=== PATIENT | female | born 1935 | race Caucasian/White ===

== ENCOUNTER 2016-06-09 08:20 | Inpatient (IN) | payer MEDICARE, BC ==
[~2016-06-09 08:20] MED LIST: Bisacodyl 5 MG Tab PO PRN; Lactated Ringers 1,000 ML IV SCH; Lidocaine 1%/Sod Bicarbonate in NS 8.4% 1 ML Syringe IV PRN; Morphine 2 MG/ML Syringe IVPUSH PRN; Sodium Chloride 0.9% 10 ML Syringe FLUSH PRN
--- NOTE | 2016-06-09 09:09 | PCM.PREANE ---
Preanesthetic Assessment - Anesthesia/Transfusion/Family Hx Anesthesia History: Prior Anesthesia Without Reaction Transfusion History: Prior Transfusion Without Reaction - Review of Systems General: No Symptoms Pulmonary: No Symptoms Cardiovascular: No Symptoms Gastrointestinal: No symptoms Neurological: No Symptoms Other: Reports: Easy Bruising - Physical Assessment NPO Status Date: 06/08/16 NPO Status Time: 18:00 Pulse: 74 O2 Sat by Pulse Oximetry: 97 Respiratory Rate: 16 Blood Pressure: 159/63 Temperature: 97.3 F Height: 5 ft 6 in Weight: 66.224 kg ASA Class: 2 Mental Status: Alert & Oriented x3 Airway Class: Mallampati = 1 Dentition: Reports: Normal Dentition, Partial (left out), Missing Tooth/Teeth Thyro-Mental Finger Breadths: 3 Mouth Opening Finger Breadths: 3 ROM/Head Extension: Full Lungs: Clear to auscultation, Normal respiratory effort Cardiovascular: Regular Rate, Regular Rhythm, No Murmurs - Lab Values: 05/26/16 labs reviewed lytes wnl BUN 21 Cr 0.9 - Imaging/EKG Impressions: ekg 05/26/16 SR rate 68 Chest x ray-05/26/16 Unremarkable chest - Allergies Allergies/Adverse Reactions: Allergies Allergy/AdvReac Type Severity Reaction Status Date / Time No Known Allergies Allergy Verified 06/06/16 15:10 - Blood Blood Available: No - Acknowledgements Anesthesia Type Planned: General Anesthesia (has metal in back and sore back) Pt an Appropriate Candidate for the Planned Anesthesia: Yes Alternatives and Risks of Anesthesia Discussed w Pt/Guardian: Yes Pt/Guardian Understands and Agrees with Anesthesia Plan: Yes PreAnesthesia Questionnaire HEENT History: Reports: Other (see below) Other HEENT History: Left ear growth, glasses, partial, hearing aids Cardiovascular History: Reports: None Respiratory History: Reports: None Gastrointestinal History: Reports: None DIRECTOR MATERNAL CHILD History: Reports: None Musculoskeletal History: Reports: Arthritis (hands) Neurological History: Reports: None Psychiatric History: Reports: None Hematologic History: Reports: Other (see below) Other Hematologic History: blood clot during chemo from port Immunologic History: Reports: None Oncologic (Cancer) History: Reports: Other (see below) Other Oncologic History: endometrial Dermatologic History: Reports: None - Past Surgical History Head Surgeries/Procedures: Reports: None GI Surgical History: Reports: Colonoscopy Female Surgical History: Reports: Hysterectomy Endocrine Surgical History: Reports: Other (see below) Other Endocrine Surgeries/Procedures: parathyroid tumor removed Musculoskeletal Surgical History: Reports: Other (see below) Other Musculoskeletal Surgeries/Procedures:: back/spine surgery on L5 - SUBSTANCE USE Smoking Status *Q: Former Smoker (years ago for a short spell) Tobacco Use Within Last Twelve Months: No Second Hand Smoke Exposure: No Days Per Week of Alcohol Use: 7 Number of Drinks Per Day: 1 Total Drinks Per Week: 7 Recreational Drug Use History: No - HOME MEDS Home Medications: Home Meds Acetaminophen [Tylenol] 650 mg PO Q4H PRN 06/06/16 [History] Cholecalciferol (Vitamin D3) [Vitamin D3] 1,000 unit PO DAILY 06/06/16 [History] - CURRENT (IN HOUSE) MEDS Current Meds: Current Medications Aspirin (Ecotrin) 325 mg PO BID LISBET Bisacodyl (Dulcolax) 5 mg PO DAILY PRN PRN Reason: Constipation Morphine Sulfate 8 mg/Epinephrine HCl 0.3 mg/Cefuroxime Sodium 750 mg/Ketorolac Tromethamine 30 mg/Sodium Chloride 27.9 ml 0 mg .XX ONETIME ONE Stop: 06/09/16 10:31 Docusate Sodium (Colace) 100 mg PO BID LISBET Famotidine (Pepcid) 20 mg PO Q12H [facility] Lactated Ringer's (Ringers, Lactated) 1,000 mls @ 125 mls/hr IV ASDIRECTED [facility] Stop: 06/09/16 23:00 Cefazolin Sodium/Dextrose 2 gm (/ Premix) 50 mls @ 100 mls/hr IV Q8H [facility] Stop: 06/09/16 23:29 Lidocaine/Sodium Bicarbonate (Buffered Lidocaine 1% In Ns 8.4%) 0.25 ml IV ONETIME PRN PRN Reason: Prior to IV Start Stop: 06/09/16 18:00 Magnesium Hydroxide (Milk Of Magnesia) 30 ml PO BID PRN PRN Reason: Constipation Morphine Sulfate (Morphine) 1 mg IVPUSH Q2H PRN PRN Reason: Breakthrough pain Multivitamins (Thera) 1 each PO WITHBREAKFAST LISBET Naloxone HCl (Narcan) 0.1 mg IVPUSH Q5M PRN PRN Reason: Oversedation Stop: 06/09/16 12:16 Ondansetron HCl (Zofran) 4 mg IVPUSH Q6H PRN PRN Reason: Nausea/Vomiting Oxycodone/Acetaminophen (Percocet 325-5 Mg) 1 - 2 tab PO Q4H PRN PRN Reason: Pain Senna (Senna) 8.6 mg PO BID PRN PRN Reason: Constipation Sodium Chloride (Saline Flush) 10 ml FLUSH ASDIRECTED PRN PRN Reason: Keep Vein Open Stop: 06/09/16 18:00 Preanesthetic Assessment - ALLERGIES Allergies/Adverse Reactions: Allergies Allergy/AdvReac Type Severity Reaction Status Date / Time No Known Allergies Allergy Verified 06/06/16 15:10
[2016-06-09] MEDS ORDERED: Lidocaine 1% 4 ML ONE (09:56)
[2016-06-09] MEDS ORDERED: Morphine PF 10 MG/10 ML SDV ONE (09:56)
[2016-06-09] MEDS ORDERED: ceFAZolin 1 GM Vial ONE (09:56)
[2016-06-09] MEDS ORDERED: Phenylephrine 1% 10 MG/ML SDV ONE (09:56)
[2016-06-09] MEDS ORDERED: Propofol 200 MG/20 ML SDV ONE ×2 (10:00→11:49)
[2016-06-09] MEDS ORDERED: fentaNYL 100 MCG/2 ML SDV ONE (10:02)
[2016-06-09] MEDS: ceFAZolin 1 GM Vial ONE ×2 (11:32→11:58)
[2016-06-09] MEDS: Iodine/Sodium Iodide 2% Tincture 30 ML Bottle ONE ×2 (11:32→11:53)
[2016-06-09] MEDS: Morphine 8 MG, EPINEPHrine 0.3 MG, Cefuroxime 750 MG, Ketorolac 30 MG, Sodium Chloride ... ONE ×15 (11:33→13:48)
[2016-06-09] MEDS: Bupivacaine 0.25% 30 ML SDV ONE ×2 (11:33→12:02)
[2016-06-09] MEDS ORDERED: Lactated Ringers 1,000 ML ONE (11:41)
[2016-06-09] MEDS ORDERED: Lidocaine 1% 2 ML ONE (11:41)
[2016-06-09] MEDS ORDERED: Naloxone 0.4 MG/ML SDV IVPUSH PRN (12:00)
--- NOTE | 2016-06-09 12:49 | PCM.POSTAN ---
POST ANESTHESIA ASSESSMENT - MENTAL STATUS Mental Status: alert, oriented - VITAL SIGNS Pulse Rate: 75 SaO2: 99 Resp Rate: 15 Blood Pressure: 111/89 Temperature: 36.2 C - RESPIRATORY Respiratory Status: respiratory rate WNL, airway patent, O2 saturation stable - CARDIOVASCULAR CV Status: pulse rate WNL, blood pressure stable - GASTROINTESTINAL GI Status: no symptoms - PAIN Pain Score: 0 - POST OP HYDRATION Hydration Status: adequate & stable - OBSERVATIONS Free Text/Narrative:: no anesthesia complications noted
[2016-06-09] MEDS ORDERED: Acetaminophen 325 MG Tab PO PRN (12:52)
[2016-06-09] MEDS ORDERED: fentaNYL 100 MCG/2 ML SDV IVPUSH PRN (13:55)
[2016-06-09] MEDS ORDERED: Pneumococcal Polyvalent-23 Vaccine 0.5 ML SDV IM ONE (14:16)
--- NOTE | 2016-06-09 14:17 | CR ---
Left knee: AP and lateral views of the left knee were obtained. Comparison: No previous knee study. Knee prosthesis is seen. Components are aligned. Underlying bony structures are intact. Soft tissue air is noted as well as air within the joint compatible with the surgical procedure. Impression: 1. Satisfactory postoperative radiographic appearance of recently placed left knee prosthesis. Diagnostic code #2
[2016-06-09] MEDS ORDERED: Pneumococcal 13-Valent Conjugate Vaccine 0.5 ML Syringe IM ONE (14:30)
[2016-06-09] MEDS: Acetaminophen/oxyCODONE 325-5 MG Tab PO PRN ×2 (15:33→20:40)
--- NOTE | 2016-06-09 15:52 | PCM.CONSN ---
- General Info Date of Service: 06/09/16 Functional Status: Reports: pain controlled, tolerating diet, urinating - Review of Systems General: Reports: No Symptoms HEENT: Reports: no symptoms Pulmonary: Reports: no symptoms Cardiovascular: Reports: No Symptoms Gastrointestinal: Reports: No symptoms Genitourinary: Reports: no symptoms Musculoskeletal: Reports: no symptoms Skin: Reports: no symptoms Neurological: Reports: No Symptoms Psychiatric: Reports: no symptoms - Patient Data Vitals - most recent: Last Vital Signs Temp 36.3 C 06/09/16 14:01 Pulse 80 06/09/16 14:32 Resp 16 06/09/16 14:01 BP 149/67 H 06/09/16 14:32 Pulse Ox 97 06/09/16 14:32 Weight - most recent: 66.224 kg I&O - last 24 hours: Intake & Output 06/09/16 06/09/16 06/09/16 06:59 14:59 22:59 Intake Total 100 Output Total 550 Balance -450 Med Orders - Current: Current Medications Acetaminophen (Tylenol) 650 mg PO Q4H PRN PRN Reason: Pain Aspirin (Ecotrin) 325 mg PO BID LISBET Bisacodyl (Dulcolax) 5 mg PO DAILY PRN PRN Reason: Constipation Cholecalciferol (Vitamin D3) 1,000 units PO DAILY LISBET Docusate Sodium (Colace) 100 mg PO BID LISBET Famotidine (Pepcid) 20 mg PO Q12H [facility] Lactated Ringer's (Ringers, Lactated) 1,000 mls @ 125 mls/hr IV ASDIRECTED [facility] Stop: 06/09/16 23:00 Last Admin: 06/09/16 09:30 Dose: 125 mls/hr Cefazolin Sodium/Dextrose 2 gm (/ Premix) 50 mls @ 100 mls/hr IV Q8H [facility] Stop: 06/10/16 09:59 Lidocaine/Sodium Bicarbonate (Buffered Lidocaine 1% In Ns 8.4%) 0.25 ml IV ONETIME PRN PRN Reason: Prior to IV Start Stop: 06/09/16 18:00 Last Admin: 06/09/16 09:12 Dose: 0.25 ml Magnesium Hydroxide (Milk Of Magnesia) 30 ml PO BID PRN PRN Reason: Constipation Morphine Sulfate (Morphine) 1 mg IVPUSH Q2H PRN PRN Reason: Breakthrough pain Multivitamins (Thera) 1 each PO WITHBREAKFAST LISBET Ondansetron HCl (Zofran) 4 mg IVPUSH Q6H PRN PRN Reason: Nausea/Vomiting Oxycodone/Acetaminophen (Percocet 325-5 Mg) 1 - 2 tab PO Q4H PRN PRN Reason: Pain Last Admin: 06/09/16 15:33 Dose: 2 tab Senna (Senna) 8.6 mg PO BID PRN PRN Reason: Constipation Sodium Chloride (Saline Flush) 10 ml FLUSH ASDIRECTED PRN PRN Reason: Keep Vein Open Stop: 06/09/16 18:00 Discontinued Medications Bupivacaine HCl (Marcaine 0.25%) Confirm Administered Dose 30 ml .ROUTE .STK- MED ONE Stop: 06/09/16 09:33 Last Admin: 06/09/16 12:02 Dose: 30 ml Cefazolin Sodium (Ancef) Confirm Administered Dose 2 gm .ROUTE .STK-MED ONE Stop: 06/09/16 09:32 Last Admin: 06/09/16 11:58 Dose: 2 gm Cefazolin Sodium (Ancef) Confirm Administered Dose 2 gm .ROUTE .STK-MED ONE Stop: 06/09/16 09:57 Morphine Sulfate 8 mg/Epinephrine HCl 0.3 mg/Cefuroxime Sodium 750 mg/Ketorolac Tromethamine 30 mg/Sodium Chloride 27.9 ml 0 mg .XX ONETIME ONE Stop: 06/09/16 10:31 Last Admin: 06/09/16 13:48 Dose: Not Given Fentanyl (Sublimaze) Confirm Administered Dose 100 mcg .ROUTE .STK-MED ONE Stop: 06/09/16 10:03 Fentanyl (Sublimaze) 50 mcg IVPUSH Q5M PRN PRN Reason: Pain Stop: 06/09/16 14:11 Lidocaine HCl (Xylocaine-Mpf 1%) Confirm Administered Dose 4 mls @ as directed .ROUTE .STK-MED ONE Stop: 06/09/16 09:57 Lidocaine HCl (Xylocaine-Mpf 1%) Confirm Administered Dose 2 mls @ as directed .ROUTE .STK-MED ONE Stop: 06/09/16 11:42 Lactated Ringer's (Ringers, Lactated) Confirm Administered Dose 1,000 mls @ as directed .ROUTE .STK-MED ONE Stop: 06/09/16 11:42 Iodine (Iodine 2% Mild Tincture) Confirm Administered Dose 30 ml .ROUTE .STK- MED ONE Stop: 06/09/16 09:33 Last Admin: 06/09/16 11:53 Dose: 18 ml Morphine Sulfate (Duramorph Pf) Confirm Administered Dose 10 mg .ROUTE .STK-MED ONE Stop: 06/09/16 09:57 Naloxone HCl (Narcan) 0.1 mg IVPUSH Q5M PRN PRN Reason: Oversedation Stop: 06/09/16 12:16 Phenylephrine HCl (Db-Synephrine) Confirm Administered Dose 10 mg .ROUTE .STK- MED ONE Stop: 06/09/16 09:57 Pneumococcal 13-Valent Conj Vacc (Prevnar 13) 0.5 ml IM .ONCE ONE Stop: 06/09/16 14:31 Pneumococcal Polyvalent Vaccine (Pneumovax 23) 0.5 ml IM .ONCE ONE Stop: 06/09/16 14:17 Last Admin: 06/09/16 15:23 Dose: Not Given Propofol (Diprivan 20 Ml) Confirm Administered Dose 200 mg .ROUTE .STK-MED ONE Stop: 06/09/16 10:01 Propofol (Diprivan 20 Ml) Confirm Administered Dose 200 mg .ROUTE .STK-MED ONE Stop: 06/09/16 11:50 Tranexamic Acid (Cyklokapron) Confirm Administered Dose 1,000 mg .ROUTE .STK- MED ONE Stop: 06/09/16 09:33 Last Admin: 06/09/16 12:10 Dose: 1,000 mg Tranexamic Acid (Cyklokapron) Confirm Administered Dose 1,000 mg .ROUTE .STK- MED ONE Stop: 06/09/16 09:34 - Exam Quality Assessment: urine catheter, DVT prophylaxis General: alert, oriented, cooperative, no acute distress HEENT: Pupils equal, Pupils reactive Neck: supple, trachea midline Lungs: Normal respiratory effort Cardiovascular: Regular Rate Abdomen: bowel sounds present, soft, no tenderness, no distension (Female) Exam: Deferred Extremities: normal pulses Skin: warm Wound/Incisions: dressing dry and intact Neurological: no new focal deficit Psy/Mental Status: alert, normal affect, normal mood Consult PN Assessment/Plan POD#: 0 (1) Osteoarthritis (arthritis due to wear and tear of joints) SNOMED Code(s): 681997161 Code(s): M19.90 - UNSPECIFIED OSTEOARTHRITIS, UNSPECIFIED SITE Current Visit: Yes (2) History of arthroplasty of left knee SNOMED Code(s): 123969946 Code(s): Z96.652 - PRESENCE OF LEFT ARTIFICIAL KNEE JOINT Current Visit: Yes Problem List Initiated/Reviewed/Updated: Yes Plan: Impression: S/P Left Knee Arthroplasty OA Left Knee with lifestyle limitations Chronic Endometrial Cancer Vitamin D deficiency Plan: Ortho pain mgt and DVT prohylaxis Home meds PT/OT post op DC 24 hours to home.
[2016-06-09] MEDS: ceFAZolin 2 GM in Premix Bag 1 BAG IV SCH (17:06)
[2016-06-09] MEDS: Ondansetron 4 MG/2 ML SDV IVPUSH PRN (17:06)
[2016-06-09] MEDS: Famotidine 20 MG Tab PO SCH (20:40)
[2016-06-09] MEDS: Docusate Sodium 100 MG Cap PO SCH (20:40)
[2016-06-09] MEDS ORDERED: Sennosides 8.6 MG Tab PO PRN (21:00)
[2016-06-09] MEDS ORDERED: Magnesium Hydroxide 400 MG/5 ML Susp 30 ML Cup PO PRN (21:00)
[2016-06-10] MEDS: Acetaminophen/oxyCODONE 325-5 MG Tab PO PRN ×3 (00:44→11:51)
[2016-06-10] MEDS: ceFAZolin 2 GM in Premix Bag 1 BAG IV SCH ×2 (00:44→08:40)
[2016-06-10] MEDS ORDERED: Multivitamins,Therapeutic Tab PO SCH (07:00)
[2016-06-10] MEDS: Docusate Sodium 100 MG Cap PO SCH (08:40)
[2016-06-10] MEDS: Famotidine 20 MG Tab PO SCH (08:41)
[2016-06-10] MEDS ORDERED: Cholecalciferol (Vitamin D3) 1,000 Unit Tab PO SCH (09:00)
[2016-06-10] MEDS ORDERED: Aspirin 325 MG Tab.EC PO SCH (09:00)
[2016-06-10] MEDS: Ondansetron 4 MG/2 ML SDV IVPUSH PRN (11:56)
[2016-06-10 12:11] VITALS: BP 128/81
--- NOTE | 2016-06-10 12:25 | PCM.CONSN ---
- General Info Date of Service: 06/10/16 Admission Dx/Problem (Free Text): POD #1, Lt TKA with Dr. Swain Doing well, pain under good control. Nauseated this am, emesis x 1 but defers/ refuses antiemetics. Slept well overnight. Doing well ambulating with PT. Plans for DC home with her daughter today. VSS. Hgb stable at 12.2 today. Functional Status: Reports: pain controlled, tolerating diet, ambulating, urinating. Denies: new symptoms - Review of Systems General: Reports: No Symptoms HEENT: Reports: no symptoms Pulmonary: Reports: no symptoms Cardiovascular: Reports: No Symptoms Gastrointestinal: Reports: Nausea Genitourinary: Reports: no symptoms Musculoskeletal: Reports: leg pain Skin: Reports: no symptoms Neurological: Reports: No Symptoms Psychiatric: Reports: no symptoms - Patient Data Vitals - most recent: Last Vital Signs Temp 98.4 F 06/10/16 12:00 Pulse 80 06/10/16 12:00 Resp 18 06/10/16 12:00 BP 128/81 06/10/16 12:00 Pulse Ox 95 06/10/16 12:00 Weight - most recent: 155 lb 14.4 oz I&O - last 24 hours: Intake & Output 06/09/16 06/10/16 06/10/16 22:59 06:59 14:59 Intake Total 1310 750 Output Total 100 50 Balance 1210 700 Lab Results last 24 hrs: Laboratory Results - last 24 hr 06/10/16 06/10/16 Range/Units 06:22 06:22 WBC 7.36 (3.98-10.04) K/mm3 RBC 3.87 L (3.98-5.22) M/mm3 Hgb 12.2 (11.2-15.7) gm/L Hct 37.2 (34.1-44.9) % MCV 96.1 H (79.4-94.8) fl MCH 31.5 (25.6-32.2) pg MCHC 32.8 (32.2-35.5) g/dl RDW Std Deviation 44.4 (36.4-46.3) fL Plt Count 286 (182-369) K/mm3 MPV 9.8 (9.4-12.3) fl Neut % (Auto) 71.1 (34.0-71.1) % Lymph % (Auto) 14.0 L (19.3-51.7) % Park % (Auto) 12.2 (4.7-12.5) % Eos % (Auto) 2.3 (0.7-5.8) Baso % (Auto) 0.3 (0.1-1.2) % Neut # (Auto) 5.23 (1.56-6.13) K/mm3 Lymph # (Auto) 1.03 L (1.18-3.74) K/mm3 Park # (Auto) 0.90 H (0.24-0.36) K/mm3 Eos # (Auto) 0.17 (0.04-0.36) K/mm3 Baso # (Auto) 0.02 (0.01-0.08) K/mm3 Sodium 137 (136-145) mEq/L Potassium 4.1 (3.5-5.1) mEq/L Chloride 102 (98-107) mEq/L Carbon Dioxide 27 (21-32) mEq/L Anion Gap 12.1 (5-15) BUN 17 (7-18) mg/dL Creatinine 1.0 (0.55-1.02) mg/dL Est Cr Clr Drug Dosing 39.90 mL/min Estimated GFR (MDRD) 53 (>60) mL/min BUN/Creatinine Ratio 17.0 (14-18) Glucose 108 (83-115) mg/dL Calcium 8.3 L (8.5-10.1) mg/dL Total Bilirubin 0.6 (0.2-1.0) mg/dL AST 17 (15-37) U/L ALT 25 (14-59) U/L Alkaline Phosphatase 60 (46-116) U/L Total Protein 6.1 L (6.4-8.2) g/dl Albumin 3.0 L (3.4-5.0) g/dl Globulin 3.1 gm/dL Albumin/Globulin Ratio 1.0 (1-2) Med Orders - Current: Current Medications Acetaminophen (Tylenol) 650 mg PO Q4H PRN PRN Reason: Pain Aspirin (Ecotrin) 325 mg PO BID LISBET Last Admin: 06/10/16 08:42 Dose: 325 mg Bisacodyl (Dulcolax) 5 mg PO DAILY PRN PRN Reason: Constipation Cholecalciferol (Vitamin D3) 1,000 units PO DAILY [facility] Last Admin: 06/10/16 08:42 Dose: 1,000 units Docusate Sodium (Colace) 100 mg PO BID [facility] Last Admin: 06/10/16 08:40 Dose: 100 mg Famotidine (Pepcid) 20 mg PO Q12H [facility] Last Admin: 06/10/16 08:41 Dose: 20 mg Magnesium Hydroxide (Milk Of Magnesia) 30 ml PO BID PRN PRN Reason: Constipation Morphine Sulfate (Morphine) 1 mg IVPUSH Q2H PRN PRN Reason: Breakthrough pain Last Admin: 06/09/16 18:44 Dose: 1 mg Multivitamins (Thera) 1 each PO WITHBREAKFAST [facility] Last Admin: 06/10/16 06:16 Dose: 1 each Ondansetron HCl (Zofran) 4 mg IVPUSH Q6H PRN PRN Reason: Nausea/Vomiting Last Admin: 06/10/16 11:56 Dose: 4 mg Oxycodone/Acetaminophen (Percocet 325-5 Mg) 1 - 2 tab PO Q4H PRN PRN Reason: Pain Last Admin: 06/10/16 11:51 Dose: 2 tab Senna (Senna) 8.6 mg PO BID PRN PRN Reason: Constipation Discontinued Medications Bupivacaine HCl (Marcaine 0.25%) Confirm Administered Dose 30 ml .ROUTE .STK- MED ONE Stop: 06/09/16 09:33 Last Admin: 06/09/16 12:02 Dose: 30 ml Cefazolin Sodium (Ancef) Confirm Administered Dose 2 gm .ROUTE .STK-MED ONE Stop: 06/09/16 09:32 Last Admin: 06/09/16 11:58 Dose: 2 gm Cefazolin Sodium (Ancef) Confirm Administered Dose 2 gm .ROUTE .STK-MED ONE Stop: 06/09/16 09:57 Morphine Sulfate 8 mg/Epinephrine HCl 0.3 mg/Cefuroxime Sodium 750 mg/Ketorolac Tromethamine 30 mg/Sodium Chloride 27.9 ml 0 mg .XX ONETIME ONE Stop: 06/09/16 10:31 Last Admin: 06/09/16 13:48 Dose: Not Given Fentanyl (Sublimaze) Confirm Administered Dose 100 mcg .ROUTE .STK-MED ONE Stop: 06/09/16 10:03 Fentanyl (Sublimaze) 50 mcg IVPUSH Q5M PRN PRN Reason: Pain Stop: 06/09/16 14:11 Lactated Ringer's (Ringers, Lactated) 1,000 mls @ 125 mls/hr IV ASDIRECTED [facility] Stop: 06/09/16 23:00 Last Admin: 06/09/16 09:30 Dose: 125 mls/hr Cefazolin Sodium/Dextrose 2 gm (/ Premix) 50 mls @ 100 mls/hr IV Q8H [facility] Stop: 06/10/16 09:59 Last Admin: 06/10/16 08:40 Dose: 100 mls/hr Lidocaine HCl (Xylocaine-Mpf 1%) Confirm Administered Dose 4 mls @ as directed .ROUTE .STK-MED ONE Stop: 06/09/16 09:57 Lidocaine HCl (Xylocaine-Mpf 1%) Confirm Administered Dose 2 mls @ as directed .ROUTE .STK-MED ONE Stop: 06/09/16 11:42 Lactated Ringer's (Ringers, Lactated) Confirm Administered Dose 1,000 mls @ as directed .ROUTE .STK-MED ONE Stop: 06/09/16 11:42 Iodine (Iodine 2% Mild Tincture) Confirm Administered Dose 30 ml .ROUTE .STK- MED ONE Stop: 06/09/16 09:33 Last Admin: 06/09/16 11:53 Dose: 18 ml Lidocaine/Sodium Bicarbonate (Buffered Lidocaine 1% In Ns 8.4%) 0.25 ml IV ONETIME PRN PRN Reason: Prior to IV Start Stop: 06/09/16 18:00 Last Admin: 06/09/16 09:12 Dose: 0.25 ml Morphine Sulfate (Duramorph Pf) Confirm Administered Dose 10 mg .ROUTE .STK-MED ONE Stop: 06/09/16 09:57 Naloxone HCl (Narcan) 0.1 mg IVPUSH Q5M PRN PRN Reason: Oversedation Stop: 06/09/16 12:16 Phenylephrine HCl (Db-Synephrine) Confirm Administered Dose 10 mg .ROUTE .STK- MED ONE Stop: 06/09/16 09:57 Pneumococcal 13-Valent Conj Vacc (Prevnar 13) 0.5 ml IM .ONCE ONE Stop: 06/09/16 14:31 Pneumococcal Polyvalent Vaccine (Pneumovax 23) 0.5 ml IM .ONCE ONE Stop: 06/09/16 14:17 Last Admin: 06/09/16 15:23 Dose: Not Given Propofol (Diprivan 20 Ml) Confirm Administered Dose 200 mg .ROUTE .STK-MED ONE Stop: 06/09/16 10:01 Propofol (Diprivan 20 Ml) Confirm Administered Dose 200 mg .ROUTE .STK-MED ONE Stop: 06/09/16 11:50 Sodium Chloride (Saline Flush) 10 ml FLUSH ASDIRECTED PRN PRN Reason: Keep Vein Open Stop: 06/09/16 18:00 Tranexamic Acid (Cyklokapron) Confirm Administered Dose 1,000 mg .ROUTE .STK- MED ONE Stop: 06/09/16 09:33 Last Admin: 06/09/16 12:10 Dose: 1,000 mg Tranexamic Acid (Cyklokapron) Confirm Administered Dose 1,000 mg .ROUTE .STK- MED ONE Stop: 06/09/16 09:34 - Exam Quality Assessment: DVT prophylaxis General: alert, oriented, cooperative, no acute distress HEENT: Pupils equal, Pupils reactive, EOMI, Mucous membr. moist/pink Neck: supple Lungs: Clear to auscultation, Normal respiratory effort Cardiovascular: Regular Rate, Regular Rhythm Abdomen: bowel sounds present, soft, no tenderness, no distension (Female) Exam: Deferred Back Exam: normal inspection Extremities: no edema, no calf tenderness, other (teds, scd's and ice to lt knee ) Peripheral Pulses: 1+: dorsalis pedis (L), dorsalis pedis (R) Skin: warm, dry Neurological: no new focal deficit Psy/Mental Status: alert, normal affect, normal mood Consult PN Assessment/Plan POD#: 1 (1) S/P total knee arthroplasty SNOMED Code(s): 5752137351547, [id number], 9858426269006 Code(s): Z96.659 - PRESENCE OF UNSPECIFIED ARTIFICIAL KNEE JOINT Priority: High Current Visit: Yes Qualifiers: Laterality: left Qualified Code(s): Z96.652 - Presence of left artificial knee joint (2) Osteoarthritis (arthritis due to wear and tear of joints) SNOMED Code(s): 781254157 Code(s): M19.90 - UNSPECIFIED OSTEOARTHRITIS, UNSPECIFIED SITE Priority: High Current Visit: Yes Qualifiers: Osteoarthritis location: knee Osteoarthritis type: primary Laterality: left Qualified Code(s): M17.12 - Unilateral primary osteoarthritis, left knee Problem List Initiated/Reviewed/Updated: Yes Plan: S/P Lt TKA with Dr. Swain, POD #1 -Pain managment and DVT prophylax per Orthopedics/primary team -PT/OT -IS -VSS -Labs stable, hgb 12.2 today -Postoperative nausea; may be due to pain medications, patient refusing antiemetics, cont to monitor, nursing to encourage take pain meds with food. Other chronic conditions stable; continue home meds Plans for discharge home with daughter today, stay with daughter x 1 week+ then home to [place] to continue with OP PT there. Other: GI Prophylax CM/SW for assistance with DC planning OK from Hospitalist team standpoint for discharge home today if nausea resolves. Patient is Full Code status
--- NOTE | 2016-06-10 12:58 | PCM.SURGPN ---
- General Info Date of Service: 06/10/16 POD#: 1 Functional Status: Reports: pain controlled, tolerating diet, ambulating, urinating. Denies: new symptoms - Review of Systems Musculoskeletal: Reports: other (The pt progressed well with P.T. and O.T.) - Patient Data Vitals - most recent: Last Vital Signs Temp 98.4 F 06/10/16 12:00 Pulse 80 06/10/16 12:00 Resp 18 06/10/16 12:00 BP 128/81 06/10/16 12:00 Pulse Ox 95 06/10/16 12:00 Weight - most recent: 155 lb 14.4 oz I&O - last 24 hours: Intake & Output 06/09/16 06/10/16 06/10/16 22:59 06:59 14:59 Intake Total 1310 750 Output Total 100 50 Balance 1210 700 Lab Results last 24 hrs: Laboratory Results - last 24 hr 06/10/16 06/10/16 Range/Units 06:22 06:22 WBC 7.36 (3.98-10.04) K/mm3 RBC 3.87 L (3.98-5.22) M/mm3 Hgb 12.2 (11.2-15.7) gm/L Hct 37.2 (34.1-44.9) % MCV 96.1 H (79.4-94.8) fl MCH 31.5 (25.6-32.2) pg MCHC 32.8 (32.2-35.5) g/dl RDW Std Deviation 44.4 (36.4-46.3) fL Plt Count 286 (182-369) K/mm3 MPV 9.8 (9.4-12.3) fl Neut % (Auto) 71.1 (34.0-71.1) % Lymph % (Auto) 14.0 L (19.3-51.7) % Walsh % (Auto) 12.2 (4.7-12.5) % Eos % (Auto) 2.3 (0.7-5.8) Baso % (Auto) 0.3 (0.1-1.2) % Neut # (Auto) 5.23 (1.56-6.13) K/mm3 Lymph # (Auto) 1.03 L (1.18-3.74) K/mm3 Walsh # (Auto) 0.90 H (0.24-0.36) K/mm3 Eos # (Auto) 0.17 (0.04-0.36) K/mm3 Baso # (Auto) 0.02 (0.01-0.08) K/mm3 Sodium 137 (136-145) mEq/L Potassium 4.1 (3.5-5.1) mEq/L Chloride 102 (98-107) mEq/L Carbon Dioxide 27 (21-32) mEq/L Anion Gap 12.1 (5-15) BUN 17 (7-18) mg/dL Creatinine 1.0 (0.55-1.02) mg/dL Est Cr Clr Drug Dosing 39.90 mL/min Estimated GFR (MDRD) 53 (>60) mL/min BUN/Creatinine Ratio 17.0 (14-18) Glucose 108 (83-115) mg/dL Calcium 8.3 L (8.5-10.1) mg/dL Total Bilirubin 0.6 (0.2-1.0) mg/dL AST 17 (15-37) U/L ALT 25 (14-59) U/L Alkaline Phosphatase 60 (46-116) U/L Total Protein 6.1 L (6.4-8.2) g/dl Albumin 3.0 L (3.4-5.0) g/dl Globulin 3.1 gm/dL Albumin/Globulin Ratio 1.0 (1-2) Med Orders - Current: Current Medications Acetaminophen (Tylenol) 650 mg PO Q4H PRN PRN Reason: Pain Aspirin (Ecotrin) 325 mg PO BID [facility] Last Admin: 06/10/16 08:42 Dose: 325 mg Bisacodyl (Dulcolax) 5 mg PO DAILY PRN PRN Reason: Constipation Cholecalciferol (Vitamin D3) 1,000 units PO DAILY [facility] Last Admin: 06/10/16 08:42 Dose: 1,000 units Docusate Sodium (Colace) 100 mg PO BID [facility] Last Admin: 06/10/16 08:40 Dose: 100 mg Famotidine (Pepcid) 20 mg PO Q12H [facility] Last Admin: 06/10/16 08:41 Dose: 20 mg Magnesium Hydroxide (Milk Of Magnesia) 30 ml PO BID PRN PRN Reason: Constipation Morphine Sulfate (Morphine) 1 mg IVPUSH Q2H PRN PRN Reason: Breakthrough pain Last Admin: 06/09/16 18:44 Dose: 1 mg Multivitamins (Thera) 1 each PO WITHBREAKFAST [facility] Last Admin: 06/10/16 06:16 Dose: 1 each Ondansetron HCl (Zofran) 4 mg IVPUSH Q6H PRN PRN Reason: Nausea/Vomiting Last Admin: 06/10/16 11:56 Dose: 4 mg Oxycodone/Acetaminophen (Percocet 325-5 Mg) 1 - 2 tab PO Q4H PRN PRN Reason: Pain Last Admin: 06/10/16 11:51 Dose: 2 tab Senna (Senna) 8.6 mg PO BID PRN PRN Reason: Constipation Discontinued Medications Bupivacaine HCl (Marcaine 0.25%) Confirm Administered Dose 30 ml .ROUTE .STK- MED ONE Stop: 06/09/16 09:33 Last Admin: 06/09/16 12:02 Dose: 30 ml Cefazolin Sodium (Ancef) Confirm Administered Dose 2 gm .ROUTE .STK-MED ONE Stop: 06/09/16 09:32 Last Admin: 06/09/16 11:58 Dose: 2 gm Cefazolin Sodium (Ancef) Confirm Administered Dose 2 gm .ROUTE .STK-MED ONE Stop: 06/09/16 09:57 Morphine Sulfate 8 mg/Epinephrine HCl 0.3 mg/Cefuroxime Sodium 750 mg/Ketorolac Tromethamine 30 mg/Sodium Chloride 27.9 ml 0 mg .XX ONETIME ONE Stop: 06/09/16 10:31 Last Admin: 06/09/16 13:48 Dose: Not Given Fentanyl (Sublimaze) Confirm Administered Dose 100 mcg .ROUTE .STK-MED ONE Stop: 06/09/16 10:03 Fentanyl (Sublimaze) 50 mcg IVPUSH Q5M PRN PRN Reason: Pain Stop: 06/09/16 14:11 Lactated Ringer's (Ringers, Lactated) 1,000 mls @ 125 mls/hr IV ASDIRECTED [facility] Stop: 06/09/16 23:00 Last Admin: 06/09/16 09:30 Dose: 125 mls/hr Cefazolin Sodium/Dextrose 2 gm (/ Premix) 50 mls @ 100 mls/hr IV Q8H [facility] Stop: 06/10/16 09:59 Last Admin: 06/10/16 08:40 Dose: 100 mls/hr Lidocaine HCl (Xylocaine-Mpf 1%) Confirm Administered Dose 4 mls @ as directed .ROUTE .STK-MED ONE Stop: 06/09/16 09:57 Lidocaine HCl (Xylocaine-Mpf 1%) Confirm Administered Dose 2 mls @ as directed .ROUTE .STK-MED ONE Stop: 06/09/16 11:42 Lactated Ringer's (Ringers, Lactated) Confirm Administered Dose 1,000 mls @ as directed .ROUTE .STK-MED ONE Stop: 06/09/16 11:42 Iodine (Iodine 2% Mild Tincture) Confirm Administered Dose 30 ml .ROUTE .STK- MED ONE Stop: 06/09/16 09:33 Last Admin: 06/09/16 11:53 Dose: 18 ml Lidocaine/Sodium Bicarbonate (Buffered Lidocaine 1% In Ns 8.4%) 0.25 ml IV ONETIME PRN PRN Reason: Prior to IV Start Stop: 06/09/16 18:00 Last Admin: 06/09/16 09:12 Dose: 0.25 ml Morphine Sulfate (Duramorph Pf) Confirm Administered Dose 10 mg .ROUTE .STK-MED ONE Stop: 06/09/16 09:57 Naloxone HCl (Narcan) 0.1 mg IVPUSH Q5M PRN PRN Reason: Oversedation Stop: 06/09/16 12:16 Phenylephrine HCl (Db-Synephrine) Confirm Administered Dose 10 mg .ROUTE .STK- MED ONE Stop: 06/09/16 09:57 Pneumococcal 13-Valent Conj Vacc (Prevnar 13) 0.5 ml IM .ONCE ONE Stop: 06/09/16 14:31 Pneumococcal Polyvalent Vaccine (Pneumovax 23) 0.5 ml IM .ONCE ONE Stop: 06/09/16 14:17 Last Admin: 06/09/16 15:23 Dose: Not Given Propofol (Diprivan 20 Ml) Confirm Administered Dose 200 mg .ROUTE .STK-MED ONE Stop: 06/09/16 10:01 Propofol (Diprivan 20 Ml) Confirm Administered Dose 200 mg .ROUTE .STK-MED ONE Stop: 06/09/16 11:50 Sodium Chloride (Saline Flush) 10 ml FLUSH ASDIRECTED PRN PRN Reason: Keep Vein Open Stop: 06/09/16 18:00 Tranexamic Acid (Cyklokapron) Confirm Administered Dose 1,000 mg .ROUTE .STK- MED ONE Stop: 06/09/16 09:33 Last Admin: 06/09/16 12:10 Dose: 1,000 mg Tranexamic Acid (Cyklokapron) Confirm Administered Dose 1,000 mg .ROUTE .STK- MED ONE Stop: 06/09/16 09:34 - Exam Wound/Incisions: dressing dry and intact General: alert, cooperative, no acute distress Lungs: Normal respiratory effort Extremities: normal pulses, no calf tenderness, other (NVS intact for BLE. Sabrina's negative.) - Problem List Review Problem List Initiated/Reviewed/Updated: Yes - My Orders Last 24 Hours: Active Orders 24 hr Category Date Time Status Faria Catheter Insertion [Insert Urinary Catheter] [OM. Care 06/10/16 10:45 Ordered PC] Q24H Notify Provider [RC] ASDIRECTED Care 06/09/16 12:48 Active Oxygen Therapy [RC] ASDIRECTED Care 06/09/16 12:48 Active Pulse Oximetry [RC] ASDIRECTED Care 06/09/16 12:48 Active Vital Signs [RC] Q15M Care 06/09/16 12:47 Inactive Vital Signs [RC] Q4HR Care 06/09/16 12:51 Active Acetaminophen [Tylenol] Med 06/09/16 12:52 Active 650 mg PO Q4H PRN Aspirin [Ecotrin] Med 06/10/16 09:00 Active 325 mg PO BID Cholecalciferol (Vitamin D3) [Vitamin D3] Med 06/10/16 09:00 Active 1,000 units PO DAILY Docusate Sodium [Colace] Med 06/09/16 21:00 Active 100 mg PO BID Famotidine [Pepcid] Med 06/09/16 21:00 Active 20 mg PO Q12H Magnesium Hydroxide [Milk of Magnesia] Med 06/09/16 21:00 Active 30 ml PO BID PRN Multivitamins,Therapeutic [Thera] Med 06/10/16 07:00 Active 1 each PO WITHBREAKFAST Sennosides [Senna] Med 06/09/16 21:00 Active 8.6 mg PO BID PRN Medication Orders Acetaminophen (Tylenol) 650 mg PO Q4H PRN PRN Reason: Pain Aspirin (Ecotrin) 325 mg PO BID [facility] Last Admin: 06/10/16 08:42 Dose: 325 mg Bisacodyl (Dulcolax) 5 mg PO DAILY PRN PRN Reason: Constipation Cholecalciferol (Vitamin D3) 1,000 units PO DAILY [facility] Last Admin: 06/10/16 08:42 Dose: 1,000 units Docusate Sodium (Colace) 100 mg PO BID [facility] Last Admin: 06/10/16 08:40 Dose: 100 mg Admin: 06/09/16 20:40 Dose: 100 mg Famotidine (Pepcid) 20 mg PO Q12H [facility] Last Admin: 06/10/16 08:41 Dose: 20 mg Admin: 06/09/16 20:40 Dose: 20 mg Magnesium Hydroxide (Milk Of Magnesia) 30 ml PO BID PRN PRN Reason: Constipation Morphine Sulfate (Morphine) 1 mg IVPUSH Q2H PRN PRN Reason: Breakthrough pain Last Admin: 06/09/16 18:44 Dose: 1 mg Multivitamins (Thera) 1 each PO WITHBREAKFAST [facility] Last Admin: 06/10/16 06:16 Dose: 1 each Ondansetron HCl (Zofran) 4 mg IVPUSH Q6H PRN PRN Reason: Nausea/Vomiting Last Admin: 06/10/16 11:56 Dose: 4 mg Admin: 06/09/16 17:06 Dose: 4 mg Oxycodone/Acetaminophen (Percocet 325-5 Mg) 1 - 2 tab PO Q4H PRN PRN Reason: Pain Last Admin: 06/10/16 11:51 Dose: 2 tab Admin: 06/10/16 06:16 Dose: 2 tab Admin: 06/10/16 00:44 Dose: 2 tab Admin: 06/09/16 20:40 Dose: 2 tab Admin: 06/09/16 15:33 Dose: 2 tab Senna (Senna) 8.6 mg PO BID PRN PRN Reason: Constipation - Assessment Assessment (Free Text/Narrative):: POD#1 - left TKA - Plan Plan (Free Text/Narrative):: 1. 325mg ASA BID, frequent mobility, TEDs. 2. Discharge to home today. The pt will stay with her daughter. 3. Hgb 12.2 today. The pt's case was discussed with Dr. Swain.
--- NOTE | 2016-06-10 13:00 | PCM.DCSUM1 ---
Discharge Summary - Hospital Course Brief History: Tiny is an 81 yo female who underwent left TKA with Dr. Swain on 06-09-2016. The procedure was completed under spinal anesthesia with MAC. The pt tolerated the procedure well and was admitted to the Medical-Surgical Unit. Medical management was provided by the Hospitalist service. The pt's Hospital course was uneventful. The pt's Hgb on POD#1 was 12.2. On POD#1, Xarelto was initiated for VTE prophylaxis. SCDs and TEDs were also used. A Mepilex dressing was placed at the incision site at the time of surgery and remained clean and dry. The pt participated in P.T. and O.T. and progressed well. The pt was allowed to WBAT. On POD#1, the pt was deemed appropriate to discharge to home with her daughter. - Discharge Data Discharge Date: 06/10/16 Discharge Disposition: Home, Self-Care 01 Condition: Good - Patient Summary/Data Consults: Consultations 06/09/16 06:57 Consult to Case Management [CONS] Routine Consult to Physician [CONS] Routine OT Evaluation and Treatment [CONS] Routine 06/09/16 07:00 PT Evaluation and Treatment [CONS] Routine - Patient Instructions Diet: Usual Diet as Tolerated Activity: Apply Ice, As Tolerated, Elevate Extremity, Full Weight Bearing Driving: Do Not Drive Showering/Bathing: May Shower Wound/Incision Care: Keep Operative Site/Wound Site Clean and Dry, Do NOT Change Dressing Notify Provider of: Fever, Increased Pain, Swelling and Redness, Drainage, Nausea and/or Vomiting Other/Special Instructions: Please get up and moving around every hour while awake. This helps to prevent blood clots. Use your walker and have help with mobility as needed. Please take a 325mg aspirin twice daily. This also helps to prevent blood clots. Please wear the NICKI hose during the day and remove them at night. Please schedule for P.T. Complete the P.T. exercises and stretches that were instructed in the Hospital. Please use the pain medication as needed. The medication may cause drowsiness and/or constipation. You could use a stool softener like docusate sodium or Colace 100mg twice daily and/or a laxative like polyethylene glycol or Miralax daily for constipation. Contact your primary care provider for further instructions if you are constipated. Please schedule an appointment with your primary care provider for 'routine post -op care'. Use the incentive spirometer often. Please place ice to the knee often. Please elevate the limb to decrease swelling. Keep the Mepilex dressing in place until follow-up. Please call [phone] with questions or concerns. - Discharge Plan Home Medications: Home Meds Acetaminophen [Tylenol] 650 mg PO Q4H PRN 06/06/16 [History] Cholecalciferol (Vitamin D3) [Vitamin D3] 1,000 unit PO DAILY 06/06/16 [History] Patient Handouts: Total Knee Replacement, Care After, [id number], Total Knee Replacement, [id number], Knee Rehabilitation Guidelines Following Surgery Referrals: Samara Marcum PA-C [Physician Grain Trader] - 06/17/16 - Patient Data Vitals - Most Recent: Last Vital Signs Temp 98.4 F 06/10/16 12:00 Pulse 80 06/10/16 12:00 Resp 18 06/10/16 12:00 BP 128/81 06/10/16 12:00 Pulse Ox 95 06/10/16 12:00 Weight - Most Recent: 155 lb 14.4 oz I&O - Last 24 hours: Intake & Output 06/09/16 06/10/16 06/10/16 22:59 06:59 14:59 Intake Total 1310 750 Output Total 100 50 Balance 1210 700 Lab Results - Last 24 hrs: Laboratory Results - last 24 hr 06/10/16 06/10/16 Range/Units 06:22 06:22 WBC 7.36 (3.98-10.04) K/mm3 RBC 3.87 L (3.98-5.22) M/mm3 Hgb 12.2 (11.2-15.7) gm/L Hct 37.2 (34.1-44.9) % MCV 96.1 H (79.4-94.8) fl MCH 31.5 (25.6-32.2) pg MCHC 32.8 (32.2-35.5) g/dl RDW Std Deviation 44.4 (36.4-46.3) fL Plt Count 286 (182-369) K/mm3 MPV 9.8 (9.4-12.3) fl Neut % (Auto) 71.1 (34.0-71.1) % Lymph % (Auto) 14.0 L (19.3-51.7) % Kidder % (Auto) 12.2 (4.7-12.5) % Eos % (Auto) 2.3 (0.7-5.8) Baso % (Auto) 0.3 (0.1-1.2) % Neut # (Auto) 5.23 (1.56-6.13) K/mm3 Lymph # (Auto) 1.03 L (1.18-3.74) K/mm3 Kidder # (Auto) 0.90 H (0.24-0.36) K/mm3 Eos # (Auto) 0.17 (0.04-0.36) K/mm3 Baso # (Auto) 0.02 (0.01-0.08) K/mm3 Sodium 137 (136-145) mEq/L Potassium 4.1 (3.5-5.1) mEq/L Chloride 102 (98-107) mEq/L Carbon Dioxide 27 (21-32) mEq/L Anion Gap 12.1 (5-15) BUN 17 (7-18) mg/dL Creatinine 1.0 (0.55-1.02) mg/dL Est Cr Clr Drug Dosing 39.90 mL/min Estimated GFR (MDRD) 53 (>60) mL/min BUN/Creatinine Ratio 17.0 (14-18) Glucose 108 (83-115) mg/dL Calcium 8.3 L (8.5-10.1) mg/dL Total Bilirubin 0.6 (0.2-1.0) mg/dL AST 17 (15-37) U/L ALT 25 (14-59) U/L Alkaline Phosphatase 60 (46-116) U/L Total Protein 6.1 L (6.4-8.2) g/dl Albumin 3.0 L (3.4-5.0) g/dl Globulin 3.1 gm/dL Albumin/Globulin Ratio 1.0 (1-2) Med Orders - Current: Current Medications Acetaminophen (Tylenol) 650 mg PO Q4H PRN PRN Reason: Pain Aspirin (Ecotrin) 325 mg PO BID [facility] Last Admin: 06/10/16 08:42 Dose: 325 mg Bisacodyl (Dulcolax) 5 mg PO DAILY PRN PRN Reason: Constipation Cholecalciferol (Vitamin D3) 1,000 units PO DAILY [facility] Last Admin: 06/10/16 08:42 Dose: 1,000 units Docusate Sodium (Colace) 100 mg PO BID [facility] Last Admin: 06/10/16 08:40 Dose: 100 mg Famotidine (Pepcid) 20 mg PO Q12H [facility] Last Admin: 06/10/16 08:41 Dose: 20 mg Magnesium Hydroxide (Milk Of Magnesia) 30 ml PO BID PRN PRN Reason: Constipation Morphine Sulfate (Morphine) 1 mg IVPUSH Q2H PRN PRN Reason: Breakthrough pain Last Admin: 06/09/16 18:44 Dose: 1 mg Multivitamins (Thera) 1 each PO WITHBREAKFAST [facility] Last Admin: 06/10/16 06:16 Dose: 1 each Ondansetron HCl (Zofran) 4 mg IVPUSH Q6H PRN PRN Reason: Nausea/Vomiting Last Admin: 06/10/16 11:56 Dose: 4 mg Oxycodone/Acetaminophen (Percocet 325-5 Mg) 1 - 2 tab PO Q4H PRN PRN Reason: Pain Last Admin: 06/10/16 11:51 Dose: 2 tab Senna (Senna) 8.6 mg PO BID PRN PRN Reason: Constipation Discontinued Medications Bupivacaine HCl (Marcaine 0.25%) Confirm Administered Dose 30 ml .ROUTE .STK- MED ONE Stop: 06/09/16 09:33 Last Admin: 06/09/16 12:02 Dose: 30 ml Cefazolin Sodium (Ancef) Confirm Administered Dose 2 gm .ROUTE .STK-MED ONE Stop: 06/09/16 09:32 Last Admin: 06/09/16 11:58 Dose: 2 gm Cefazolin Sodium (Ancef) Confirm Administered Dose 2 gm .ROUTE .STK-MED ONE Stop: 06/09/16 09:57 Morphine Sulfate 8 mg/Epinephrine HCl 0.3 mg/Cefuroxime Sodium 750 mg/Ketorolac Tromethamine 30 mg/Sodium Chloride 27.9 ml 0 mg .XX ONETIME ONE Stop: 06/09/16 10:31 Last Admin: 06/09/16 13:48 Dose: Not Given Fentanyl (Sublimaze) Confirm Administered Dose 100 mcg .ROUTE .STK-MED ONE Stop: 06/09/16 10:03 Fentanyl (Sublimaze) 50 mcg IVPUSH Q5M PRN PRN Reason: Pain Stop: 06/09/16 14:11 Lactated Ringer's (Ringers, Lactated) 1,000 mls @ 125 mls/hr IV ASDIRECTED [facility] Stop: 06/09/16 23:00 Last Admin: 06/09/16 09:30 Dose: 125 mls/hr Cefazolin Sodium/Dextrose 2 gm (/ Premix) 50 mls @ 100 mls/hr IV Q8H [facility] Stop: 06/10/16 09:59 Last Admin: 06/10/16 08:40 Dose: 100 mls/hr Lidocaine HCl (Xylocaine-Mpf 1%) Confirm Administered Dose 4 mls @ as directed .ROUTE .STK-MED ONE Stop: 06/09/16 09:57 Lidocaine HCl (Xylocaine-Mpf 1%) Confirm Administered Dose 2 mls @ as directed .ROUTE .STK-MED ONE Stop: 06/09/16 11:42 Lactated Ringer's (Ringers, Lactated) Confirm Administered Dose 1,000 mls @ as directed .ROUTE .STK-MED ONE Stop: 06/09/16 11:42 Iodine (Iodine 2% Mild Tincture) Confirm Administered Dose 30 ml .ROUTE .STK- MED ONE Stop: 06/09/16 09:33 Last Admin: 06/09/16 11:53 Dose: 18 ml Lidocaine/Sodium Bicarbonate (Buffered Lidocaine 1% In Ns 8.4%) 0.25 ml IV ONETIME PRN PRN Reason: Prior to IV Start Stop: 06/09/16 18:00 Last Admin: 06/09/16 09:12 Dose: 0.25 ml Morphine Sulfate (Duramorph Pf) Confirm Administered Dose 10 mg .ROUTE .STK-MED ONE Stop: 06/09/16 09:57 Naloxone HCl (Narcan) 0.1 mg IVPUSH Q5M PRN PRN Reason: Oversedation Stop: 06/09/16 12:16 Phenylephrine HCl (Db-Synephrine) Confirm Administered Dose 10 mg .ROUTE .STK- MED ONE Stop: 06/09/16 09:57 Pneumococcal 13-Valent Conj Vacc (Prevnar 13) 0.5 ml IM .ONCE ONE Stop: 06/09/16 14:31 Pneumococcal Polyvalent Vaccine (Pneumovax 23) 0.5 ml IM .ONCE ONE Stop: 06/09/16 14:17 Last Admin: 06/09/16 15:23 Dose: Not Given Propofol (Diprivan 20 Ml) Confirm Administered Dose 200 mg .ROUTE .STK-MED ONE Stop: 06/09/16 10:01 Propofol (Diprivan 20 Ml) Confirm Administered Dose 200 mg .ROUTE .STK-MED ONE Stop: 06/09/16 11:50 Sodium Chloride (Saline Flush) 10 ml FLUSH ASDIRECTED PRN PRN Reason: Keep Vein Open Stop: 06/09/16 18:00 Tranexamic Acid (Cyklokapron) Confirm Administered Dose 1,000 mg .ROUTE .STK- MED ONE Stop: 06/09/16 09:33 Last Admin: 06/09/16 12:10 Dose: 1,000 mg Tranexamic Acid (Cyklokapron) Confirm Administered Dose 1,000 mg .ROUTE .STK- MED ONE Stop: 06/09/16 09:34 *Q Meaningful Use (DIS) - VTE *Q VTE Criteria *Q: - Stroke *Q Stroke Criteria *Q: - AMI *Q AMI Criteria *Q:
--- NOTE | 2016-06-11 14:16 | PCM.OPNOTE ---
- General Post-Op/Procedure Note Date of Surgery/Procedure: 06/09/16 Operative Procedure(s): left total knee arthroplasty Pre Op Diagnosis: left knee osteoarthrosis Post-Op Diagnosis: Same Anesthesia Technique: Local, MAC, Spinal Primary Surgeon: Pepe Swain Anesthesia Provider: Marcin Rohtman Internet Marketing Intern: Samara Marcum Internet Marketing Intern: Latanya Vick EBL in mLs: 250 Complications: None Condition: Good
--- NOTE | 2016-06-11 15:19 | OR ---
DATE OF OPERATION: 06/09/2016 SURGEON: Pepe Swain MD OPERATION PERFORMED: Left total knee arthroplasty. PREOPERATIVE DIAGNOSIS: Left knee osteoarthrosis. POSTOPERATIVE DIAGNOSIS: Left knee osteoarthrosis. ANESTHESIA: Local MAC with spinal. ANESTHESIA PROVIDER: Marcin Rothman CRNA. REVENUE OFFICER: Samara Marcum PA-C and Travis Vick M.D. ESTIMATED BLOOD LOSS: 250 mL COMPLICATIONS: None. CONDITION: Stable. IMPLANTS: 1. Martita size 4 PS femur. 2. Martita size 4 universal tibial baseplate. 3. Martita size 4, 9 mm X3 PS polyethylene. 4. Martita 29 x 9 mm asymmetric patella. DESCRIPTION OF PROCEDURE: The patient was identified in the preop holding area. Proper site was marked and identified by the surgeon. The patient was taken back to the operating theater. After adequate anesthesia, the patient's left lower extremity had a nonsterile tourniquet applied and it was then sterilely prepped and draped in the usual sterile fashion. OR timeout was performed. The patient received 2 g IV Ancef. At this time, left lower extremity was exsanguinated. Tourniquet was insufflated to 300 mmHg. Standard medial parapatellar incision was made. Medial parapatellar arthrotomy was created. Deep fibers of the MCL were raised and anterior fat pad was resected. At this time, attention was turned to the patella. Patella measured 20, it was resected to a 13, for a 29 x 9 mm patella. Drill holes were then drilled and found to be in adequate position. The drill was then drilled in the distal femur and the intramedullary distal femoral cutting guide was then placed. An 8 mm was resected off the distal femur and was found to be an adequate resection. Sizing guide was placed. It was found to be a size 8 mm femur that was shown on the implant record at the beginning of this dictation. The drill holes were drilled for the epicondylar axis using Whitesides line and epicondyles as reference. At this time, the 4-in-1 cutting block was placed. An anterior posterior and anterior and posterior chamfer cuts were then completed. The correct size box cut was then placed and the box cut was completed and found to be an adequate resection. Attention was turned to the tibia. The posterior medial lateral retractors were placed. The extramedullary tibial guide was placed. It was placed in the old footprint of the ACL. It was aligned with the center of the ankle and 0 degrees of slope, 9 mm was then resected off the unaffected lateral side. There was found to be an acceptable reduction. At this time, posterior osteophytes were removed along with medial and lateral meniscus. A trial implant was placed with a correct sized tibia that was mentioned at the beginning of the dictation. A 9 mm trial spacer was applied. A 9 mm X3 polyethylene was then placed. The patient's knee was brought through range of motion. The patella was tracking centrally and was stable to varus and valgus stress. Alignment was found to be roughly at 0 degrees. At this time, cement was mixed on the back table. The tibia was stamped and drilled in proper rotation. All cut surfaces were irrigated with pulse lavage irrigation with Ancef and then completely dried. Once this was completed, then the cement was ready. The universal tibial base plate was cemented in place. Next, the 8 mm femur cemented into place and the 9 mm polyethylene was placed. The patient's knee was brought into full extension. Excess cement was removed. The patella was then cemented in place at this time. Tourniquet was deflated. One liter dilute Betadine solution was irrigated through the knee along with 3 L of pulse lavage irrigation with Ancef. Periarticular injection was then completed. The patient's knee was brought through a range of motion. Once the cement had time to set up and it was found to be stable to varus valgus stress, the patella was tracking centrally with full range of motion. At this time, a #2 barbed suture was used for closure of the medial parapatellar arthrotomy. Topical tranexamic acid was placed. 2-0 Vicryl was used subcutaneously, a running 3-0 Monocryl was used subcuticularly. The patient tolerated the procedure well and was sent to the PACU in stable condition. ELVIA /[id number]
== END 2016-06-10 14:30 | disposition home or self-care (01) | DRG 470 ==
LOC: JD.MS 08:20
PROVIDERS: ADMIT Orthopaedic Surgery; ATTEND Orthopaedic Surgery
PROC: 0SRD0J9 Replacement of Left Knee Joint with Synthetic Substitute, Cemented, Open Approach (ICD-10-PCS; principal; 2016-06-09)
DX: M17.12 Unilateral primary osteoarthritis, left knee (principal); Z85.42 Personal history of malignant neoplasm of other parts of uterus; E55.9 Vitamin D deficiency, unspecified; Z23 Encounter for immunization
CPT/HCPCS: 01402; 36415; 73560-26-LT; 73560-LT; 80053; 85025; 90670; 94762; 97110-GP; 97116-GP; 97161-GP; 97165-GO; 97535-GO; A9270-GY; C1713; C1776; G0009; J0171; J0690; J0697; J1885; J2270; J2370; J2405; J2704; J3010; J3490; J7120